=== PATIENT | female | born 1945 | race Caucasian/White ===

== ENCOUNTER 2016-08-14 13:24 | Day surgery (SDC) | payer MEDICARE, OTHER ==
[~2016-08-14 13:24] MED LIST: Lidocaine Topical 2% 30 mL Jelly ONE
== END 2016-08-14 23:59 | disposition home or self-care (01) ==
LOC: END 13:24
PROVIDERS: ATTEND Internal Medicine
DX: K21.9 Gastro-esophageal reflux disease without esophagitis (principal)